=== PATIENT | male | born 1955 | race Caucasian/White ===

== ENCOUNTER → 2017-01-09 | Outpatient (CLI) | payer OTHER ==
--- NOTE | 2017-01-09 11:35 | REP ---
MRI OF THE RIGHT SHOULDER: TECHNIQUE: Axial T2 fat sat, gradient echo, sagittal oblique T2 fat sat, coronal oblique T1, T2 fat sat. There is ill-defined high signal in T2-weighted images involving the supraspinatus tendon compatible with tendinopathy/tendinitis. There does appear to be a partial undersurface tear of the distal anterior tendon. There is no other evidence of rotator cuff tendon tear. There are moderate hypertrophic degenerative changes of the acromioclavicular joint with subchondral marrow edema. There is a type 2 acromion. Biceps tendon is within the bicipital groove. There is no Hill-Sachs deformity. The deltoid muscle demonstrates no abnormal signal. There appears to be diffuse fraying of the labrum with a focal tear over the posterior labrum superior aspect. There is moderate chondromalacia at the glenohumeral joint with a focal cartilaginous defect inferiorly approximately 3 x 6 mm. There are subchondral cystic changes in the superolateral humeral head. There is a small joint effusion. There is no paralabral cyst. IMPRESSION: Supraspinatus tendinopathy/tendinitis with partial undersurface tear distally. Moderate hypertrophic degenerative changes acromioclavicular joint. Diffuse labral fraying with a focal tear of the posterior labrum superior aspect. Moderate chondromalacia of the glenohumeral joint with a focal cartilaginous defect inferiorly, approximately 3 x 6 mm. Subchondral cystic changes humeral head. Small joint effusion. Signed by Servando Short MD 01/09/2017 05:18 P
== END ==
LOC: M PLARAD 09:14
PROVIDERS: ATTEND Physician Assistant
DX: M19.011 Primary osteoarthritis, right shoulder (principal)

== ENCOUNTER → 2020-12-18 | Outpatient (CLI) | payer MEDICARE ==
--- NOTE | 2020-12-18 12:50 | REP ---
INDICATION: VVI. Venous insufficiency. COMPARISON: None. TECHNIQUE: Bilateral lower extremity duplex venous scanning is performed from the groin to the ankle level. Bilateral lower extremity reflux evaluation. FINDINGS: The deep veins are anechoic and fully compressible from the groin to the popliteal fossa in the left and right lower extremity. Color flow imaging is homogeneous. Spectral Doppler interrogation demonstrates intact respiratory variation in flow and normal manual augmentation of flow. There is no evidence of deep vein thrombosis in the femoropopliteal veins. The calf veins could not be visualized well due to patient body habitus. Reflux evaluation: In the right lower extremity, there is mild reflux in the right common femoral vein with the bed tilt maneuver, 1.6 seconds in duration. There is mild reflux in the proximal superficial femoral vein 0.9 seconds in duration with standing. No other right lower extremity deep or superficial system reflux is seen. The greater saphenous vein measures 6 mm in greatest diameter proximally, 4 mm at the midthigh, and 2 mm at the knee. Lesser saphenous vein is 4 mm in diameter. No superficial system reflux is seen on the right. On the left, there is no deep or superficial system reflux visible. The greater saphenous vein dimensions are 8 mm, 3 mm, and 3 mm respectively at the proximal, mid thigh, and knee level. The lesser saphenous vein on the left measures 4 mm. IMPRESSION: No evidence of DVT in the femoropopliteal veins. No DVT in the visible portions of the calf veins. Minimal reflux on the right as above. <Electronically signed by Ameya Amezcua > 12/18/20 [id number]
== END ==
LOC: M RAD 11:00
PROVIDERS: ATTEND Surgery
DX: I87.2 Venous insufficiency (chronic) (peripheral) (principal)

== ENCOUNTER 2023-03-26 08:12 | Day surgery (SDC) | payer MEDICARE ==
[~2023-03-26] VITALS: Ht 162.6 cm; Wt 122.5 kg
[~2023-03-26 08:12] MED LIST: LISI20TA37 PO; NS 1,000 ML IV ONE; OMEP-173 PO; TAMS1CAP17 PO; XARE20TA PO
[2023-03-26] MEDS ORDERED: LIDOCAINE 2% 100MG/5ML SDV (FOR ANES.) As Ordered ONE (11:04)
[2023-03-26] MEDS ORDERED: propofoL 200 MG/20 ML VIAL As Ordered ONE ×2 (11:04→11:15)
[2023-03-26] MEDS ORDERED: fentaNYL 100 MCG/2 ML INJECTION As Ordered ONE (11:04)
[2023-03-26 12:05] VITALS: BP 132/74; TEMP 97.3; O2SAT 98
== END 2023-03-26 12:07 | disposition home or self-care (01) ==
LOC: M OPP 08:12
PROVIDERS: ATTEND Internal Medicine Gastroenterology
DX: Z12.11 Encounter for screening for malignant neoplasm of colon (principal); D12.6 Benign neoplasm of colon, unspecified; K57.30 Diverticulosis of large intestine without perforation or abscess without bleeding; K64.4 Residual hemorrhoidal skin tags; K64.8 Other hemorrhoids; K22.89 Other specified disease of esophagus; K29.70 Gastritis, unspecified, without bleeding; K31.89 Other diseases of stomach and duodenum; K30 Functional dyspepsia; I48.91 Unspecified atrial fibrillation; G47.30 Sleep apnea, unspecified; Z99.89 Dependence on other enabling machines and devices; Z79.01 Long term (current) use of anticoagulants; Z79.83 Long term (current) use of bisphosphonates; Z79.899 Other long term (current) drug therapy
CPT/HCPCS: 43239; 45385; 88305; J3010

== ENCOUNTER → 2024-02-03 | Outpatient (CLI) | payer MEDICARE ==
[~2024-02-03] MED LIST changes: -NS 1,000 ML IV ONE
== END ==
LOC: M EKG 08:53
PROVIDERS: ATTEND Registered Nurse
DX: I48.21 Permanent atrial fibrillation (principal)